=== PATIENT | female | born 1990 | race African-American/Black ===

== ENCOUNTER 2019-10-31 23:28 | Emergency (ER) | payer MEDICAID ==
[~2019-10-31] VITALS: Ht 157.5 cm; Wt 106.6 kg
[2019-10-31] MEDS ORDERED: ABILIFY MAINTE300 M1 IM (23:38)
[2019-10-31 23:46] LABS: URINE BILIRUBIN NEGATIVE (Negative); URINE BLOOD 2+ (Negative); URINE COLOR YELLOW; URINE GLUCOSE-RANDOM NEGATIVE (Negative); URINE KETONES NEGATIVE (Negative); URINE LEUKOCYTES-REFLEX 1+ (Negative); URINE NITRITE-REFLEX NEGATIVE (Negative); URINE PROTEIN 2+ (Negative); URINE SPECIFIC GRAVITY >= 1.030 (1.005-1.030); URINE UROBILINOGEN 0.2 E.U./dl (0.2-1.0)
[2019-10-31 23:47] LABS: URINE CLARITY CLOUDY
[2019-10-31 23:49] LABS: BACTERIA-REFLEX >30 Many /HPF (None Seen); CASTS None Seen /LPF (None Seen); CRYSTALS None Seen /LPF (None Seen); MUCUS 0-3 Light strn/LPF (None Seen); SQUAMOUS 0-3 Few /LPF (0-3); URINE WBC-REFLEX >25 Many /HPF (0-5); WBC CLUMPS Moderate (None Seen)
[2019-11-01] MEDS ORDERED: CIPROFLOXACIN500 M1 PO (00:37)
[2019-11-01 00:46] VITALS: BP 120/88
[2019-11-02] MEDS ORDERED: PYRIDIUM100 M1 PO (17:48)
== END 2019-11-01 00:46 | disposition home or self-care (01) ==
LOC: M.ERS 23:28
PROVIDERS: Emergency Medicine
DX: N39.0 Urinary tract infection, site not specified (principal)

== ENCOUNTER 2019-11-02 17:00 | Emergency (ER) | payer MEDICAID ==
[~2019-11-02] VITALS: Ht 157.5 cm; Wt 93.0 kg
[~2019-11-02 17:00] MED LIST: ABILIFY MAINTE300 M1 IM; CIPROFLOXACIN500 M1 PO
[2019-11-02 17:17] LABS: URINE BILIRUBIN NEGATIVE (Negative); URINE BLOOD TRACE (Negative); URINE CLARITY SL CLOUDY; URINE COLOR YELLOW; URINE GLUCOSE-RANDOM NEGATIVE (Negative); URINE KETONES NEGATIVE (Negative); URINE LEUKOCYTES-REFLEX 1+ (Negative); URINE NITRITE-REFLEX NEGATIVE (Negative); URINE PROTEIN NEGATIVE (Negative); URINE SPECIFIC GRAVITY >= 1.030 (1.005-1.030); URINE UROBILINOGEN 0.2 E.U./dl (0.2-1.0)
[2019-11-02 17:23] LABS: SQUAMOUS >10 Many /LPF (0-3)
[2019-11-02 17:25] LABS: BACTERIA-REFLEX >30 Many /HPF (None Seen); CASTS None Seen /LPF (None Seen); CRYSTALS None Seen /LPF (None Seen); MUCUS 4-6 Moderate strn/LPF (None Seen); URINE RBC 0-2 Rare /HPF (0-2)
[2019-11-02] MEDS ORDERED: PYRIDIUM100 M1 PO (17:48)
[2019-11-02 18:05] VITALS: BP 121/81
== END 2019-11-02 18:06 ==
LOC: M.ERS 17:00
PROVIDERS: Emergency Medicine Emergency Medical Services
DX: N39.0 Urinary tract infection, site not specified (principal)